=== PATIENT | male | born 1960 | race Caucasian/White ===

== ENCOUNTER → 2017-06-12 08:27 | Outpatient (CLI) | payer MEDICAID, SELFPAY ==
[2017-05-11 14:21] VITALS: BP 151/82; PULSE 75; RESP 18; TEMP 36.7; O2SAT 96; BMI 29.5
--- NOTE | 2017-05-11 14:47 | SDCEKG_ITS ---
Test Reason : Blood Pressure : / mmHG Vent. Rate : 077 BPM Atrial Rate : 077 BPM P-R Int : 152 ms QRS Dur : 094 ms QT Int : 416 ms P-R-T Axes : 042 021 126 degrees QTc Int : 470 ms Normal sinus rhythm T wave abnormality, consider lateral ischemia Prolonged QT Abnormal ECG Confirmed by CORNELIO STRONG ([id number]), editor house organ JENNIFER PEREZ ([id number]) on 05/14/2017 1:36:32 PM Referred By: Brennan Carrillo Confirmed By:CORNELIO STRONG
--- NOTE | 2017-05-11 14:50 | RAD_ITS ---
STUDY: X-RAY CHEST REASON FOR EXAM: Male, 56 years old. Preoperative evaluation. Shortness of breath. TECHNIQUE: PA and lateral views of the chest. COMPARISON: None. FINDINGS: Hyperinflation. Decreased bronchovascular markings bilaterally suggestive of emphysematous changes. Mild increased markings at the lung bases suggestive of scarring. This also evidence of a tiny cystic spaces at the lung bases suggestive of honeycombing. Sternal cerclage wires and vascular clips are present from a prior sternotomy and coronary artery bypass graft procedure (CABG). Normal mediastinum and manny. Normal visualized pulmonary arteries. There is atherosclerotic tortuosity of the aortic arch and descending thoracic aorta. Normal visualized thoracic spine. Normal visualized ribs, clavicles, and shoulders. There is no demonstrated abnormality of the visualized soft tissue structures of the upper abdomen. RAD/Chest PA and Lateral IMPRESSION: Findings suggestive of a chronic bibasilar scarring superimposed on emphysematous changes. Electronically Signed: Chad Mccracken MD at 15:20 EDT Tel [phone], Service support ,
[2017-05-11 15:10] LABS: Hematocrit 37.9 % (40-54); Hemoglobin 12.9 g/dl (13.0-16.5); Mean Corpuscular Hgb 30.6 pg (27.0-32.0); Mean Platelet Vol. 8.3 fl (6.2-12.0); Platelet Count 410 K/mm3 (150-450); RBC Distribution Width CV 13.5 % (11.6-14.6); Red Blood Count 4.21 M/mm3 (4.6-6.2); White Blood Count 9.2 K/mm3 (4.4-11.0)
[2017-05-11 15:15] LABS: Scan Indicated on CBC? Y/N NO
[2017-05-11 15:29] LABS: Anion Gap 6 (5-15); BUN 1 mg/dL (7-18); BUN/Creat Ratio 2.5 RATIO (10-20); Calcium,Total 8.8 mg/dL (8.5-10.1); Chloride 92 mmol/L (98-107); EST Glomerular Filtration Rate 237 mL/min (>60); Est Glom Filt Rate - Afr Amer 287 mL/min (>60); Glucose 87 mg/dL (74-106); Potassium 3.8 mmol/L (3.5-5.1); Sodium Level 130 mmol/L (136-145)
== END ==
PROVIDERS: Visit Provider Otolaryngology
DX: R06.02 Shortness of breath (principal); I10 Essential (primary) hypertension; F17.200 Nicotine dependence, unspecified, uncomplicated; J45.909 Unspecified asthma, uncomplicated; R94.31 Abnormal electrocardiogram [ECG] [EKG]; Z53.9 Procedure and treatment not carried out, unspecified reason
CPT/HCPCS: 71046; 80048; 85027; 93005

== ENCOUNTER → 2017-06-18 08:40 | Outpatient (CLI) | payer MEDICAID, SELFPAY ==
--- NOTE | 2017-06-18 08:42 | ECHOD_ITS ---
Reason For Study: S/P CABG Procedure This was a 2D Doppler, Color Flow transthoracic echocardiogram. The study was technically difficult. Exam performed in department. Left Ventricle Normal size and thickness. The estimated ejection fraction is 65 %. Normal diastology for age. No regional wall motion abnormalities noted. Right Ventricle Normal size and thickness. Normal systolic function. Atria Normal left atrium. Normal right atrium. Normal atrial septum. Mitral Valve The mitral valve is structurally normal. No prolapse or stenosis seen. Trivial mitral valve insufficiency. Tricuspid Valve Normal tricuspid valve. Trivial eccentric tricuspid valve insufficiency. Right ventricular systolic pressure estimated to be 27 mmHg. Aortic Valve Trisinus/trileaflet aortic valve. Mild diffuse aortic valve thickening. Trivial aortic valve insufficiency. Pulmonic Valve Normal pulmonic valve. Great Vessels Normal aortic root. Normal arch. Normal inferior vena cava. Inferior vena cava collapse with sniff. Pericardium/Pleural No pericardial effusion. Medication Definity0.3ml given slow IV push to enhance endocardial definition. MMode/2D Measurements & Calculations LVIDd: 5.0 cm IVSd: 1.4 cm Ao root diam: 3.0 cm LVIDs: 3.8 cm LVPWd: 0.85 cm LA dimension: 4.0 cm RVDd: 3.4 cm FS: 24.6 % LAV(MOD-bp): 42.7 ml LA A4 area: 16.6 cm2 RA A4 area: 13.5 cm2 LAV(MOD-bp) Indexed: 21.8 ml/m2 LAV(MOD-sp2): 41.5 ml LAV(MOD-sp4): 43.2 ml Doppler Measurements & Calculations MV E max viet: 98.7 cm/sec Lat Peak E' Viet: 8.0 cm/sec Med Peak E' Viet: 4.8 cm/sec MV A max viet: 71.7 cm/sec E/E' lat: 12.3 E/E' med: 20.7 MV E/A: 1.4 Ao V2 max: 130.3 cm/sec AI max viet: 440.0 cm/sec LV V1 max: 139.9 cm/sec Ao max P.8 mmHg AI max P.4 mmHg LV V1 max P.8 mmHg Ao V2 mean: 86.3 cm/sec AI dec slope: 305.1 cm/sec2 Ao mean P.3 mmHg AI P1/2t: 422.5 msec Ao V2 VTI: 25.8 cm PA V2 max: 111.7 cm/sec TR max viet: 236.3 cm/sec TR max P.3 mmHg Interpretation Summary The estimated ejection fraction is 65 %. Normal diastology for age. Trivial mitral valve insufficiency. Trivial eccentric tricuspid valve insufficiency. Right ventricular systolic pressure estimated to be 27 mmHg. Trivial to mild aortic valve insufficiency. There is no comparison study available. Ordering Physician: Fred Walton Referring Physician: Davi See Performed By: Sanjuanita Thacker RDCS, RVT
== END ==
PROVIDERS: Visit Provider Internal Medicine Cardiovascular Disease
DX: I25.10 Atherosclerotic heart disease of native coronary artery without angina pectoris (principal); R94.31 Abnormal electrocardiogram [ECG] [EKG]; Z95.1 Presence of aortocoronary bypass graft; Z01.810 Encounter for preprocedural cardiovascular examination
CPT/HCPCS: 93306; Q9957; A4216; C8929

== ENCOUNTER → 2017-07-10 11:47 | Outpatient (CLI) | payer MEDICAID, SELFPAY ==
--- NOTE | 2017-07-11 12:24 | STRESSREP ---
Stress Test Report Treadmill EKG: Resting EKG: Normal sinus rhythm, normal axis, normal intervals, no evidence of previous myocardial infarction. Treadmill EKG: The patient exercise according to a modified Casimiro protocol for 54 seconds, achieving a maximum workload of 1.30 METS. Resting heart rate was initially 104 beats a minute and umair to maximum 134 beats a minute which represents 83% of the maximal age corrected heart rate. Resting blood pressure was 132/94, and umair to maximum 180/88. Test was terminated due to dyspnea and fatigue. During exercise the patient's heart rate increased as expected. The patient had no dynamic EKG changes to suggest ischemia. No anginal symptoms recorded. Conclusions: Abnormal adequate treadmill EKG. Negative for ischemia by EKG criteria. No anginal symptoms noted. No arrhythmias noted. Appropriate blood pressure response to exercise. Markedly reduced exercise capacity going only 54 seconds on a modified Casimiro protocol. Test terminated due to dyspnea and fatigue. Recommend clinical correlation or alternative mode of testing if coronary ischemia is strongly suspected. No complications.
== END ==
PROVIDERS: Visit Provider Internal Medicine Cardiovascular Disease
DX: R94.31 Abnormal electrocardiogram [ECG] [EKG] (principal); Z01.810 Encounter for preprocedural cardiovascular examination; E78.5 Hyperlipidemia, unspecified; I10 Essential (primary) hypertension; I25.2 Old myocardial infarction; I25.10 Atherosclerotic heart disease of native coronary artery without angina pectoris; Z95.1 Presence of aortocoronary bypass graft
CPT/HCPCS: 93017

== ENCOUNTER → 2017-07-27 12:23 | Outpatient (CLI) | payer MEDICAID, SELFPAY ==
--- NOTE | 2017-07-27 12:24 | STE_ITS ---
Reason For Study: ABN STRESS, PRE-OP, HTN Stress Results Protocol: Dobutamine Stress Protocol Maximum Predicted HR: 161 bpm Target HR: 137 bpm% Maximum Predict ed HR: 86 % DurationHeart Rate Stage (mm:ss) (bpm) BPDose Comment BASELINE 89 148/99 DEFINITY 6 ML DILUTED USED DURING STRESS DSE- 10 MCG 3:42 10 2 150/69059.00SL SOB DSE- 20 MCG 3:17 12 6 177/8020.00 DSE- 30 MCG 5:56 13 9 153/8030.00RARE PVC, SL SOB RECOVERY 102 142/9 0 Stress Duration: 12:55 mm:ss Maximum Stress HR: 139 bpm Baseline Echocardiogram Findings The estimated ejection fraction is 65 %. Stress Echo Wall motion Data Resting WMIntermediate WMStress WM Resting Wall Motion Wall Motion Stress No regional wall motion No regional wall motion abnormalities noted. abnormalities noted. EKG Data Normal intervals are noted. The patient was titrated from 10 mcg to a maximun of 30 mcg of dobutamine during the stress. The maximum heart rate attained was 139 beats per minute. This was 86% of maximum predicted heart rate. During dobutamine infusion, there were no ST or T wave changes noted to suggest ischemia. No clinical angina was noted. Interpretation Summary The study was technically difficult. Contrast injection was performed. The estimated ejection fraction is 65 %. The patient was titrated from 10 mcg to a maximun of 30 mcg of dobutamine during the stress. Normal, adequate, dobutamine echocardiogram. Negative for ischemia by EKG and echocardiographic criteria. No anginal symptoms noted. Rare PVCs noted. Appropriate blood pressure response to dobutamine. Final LVEF is 75%. Decreased sensitivity due to poor echo windows requiring Definity enhancement agent. No complications. Ordering Physician: Fred Walton Referring Physician: Fred Walton Performed By: Caterina Montes, RDCS, RVT
== END ==
PROVIDERS: Visit Provider Internal Medicine Cardiovascular Disease
DX: Z01.810 Encounter for preprocedural cardiovascular examination (principal); I25.10 Atherosclerotic heart disease of native coronary artery without angina pectoris; I25.2 Old myocardial infarction; I10 Essential (primary) hypertension; E78.5 Hyperlipidemia, unspecified; R94.31 Abnormal electrocardiogram [ECG] [EKG]; R94.39 Abnormal result of other cardiovascular function study; Z95.1 Presence of aortocoronary bypass graft
CPT/HCPCS: 93017; 93350; J7030; Q9957; A4216; C8928

== ENCOUNTER 2017-10-15 05:53 | Day surgery (SDC) | payer MEDICAID, SELFPAY ==
[2017-10-15] VITALS (12 sets, daily range): BP systolic 107–146; BP diastolic 66–88; PULSE 60–76; RESP 18–22; TEMP 36.3–36.9; O2SAT 92–98; BMI 26.8
--- NOTE | 2017-10-15 | NASAL_PTH ---
PATIENT: JACOB MCCALLUM [place] [facility] [place][id number] AGE/SX: 57/M ROOM: RE10/15/[address]: Dr. Brennan Carrillo MD : [id number] BED: DIS: 10/15/2017 SPEC #: [id number] RECD: 10/15/17 08:10 STATUS: POORNIMA RESigifredo #: [id number] NEREIDA: 10/15/17 00:[address]: Brennan Carrillo DEPT: SURGICAL PATHOLOGY RECD BY: Rosa Shepherd ENTERED: 10/15/17 09:52 SP TYPE: NASAL SPEC OTHR DR: Dr. Davi See MD Tissues: A - Skin of nose, NOS B - Skin of nose, NOS Procedures: Frozen Section (charge) Frozen Section Add'l ([facility]) Surgery Specimen Level IV Frozen (no charge) HEADER OPERATION: Excision lesion nose with frozen section, cervical advancement PRE-OP DIAGNOSIS: Malignant neoplasm of skin of nose TISSUE SUBMITTED: A ? Left nasal ala neoplasm, long stitch ? lateral at 3 o?clock, short stitch ? superior at 12 o?clock, frozen section, B ? Additional tissue, left nasal ala FROZEN SECTION DIAGNOSIS A. Left nasal alar neoplasm, excision: Basal cell carcinoma, completely excised. SJ:mariaelena 10/15/17 MICROSCOPIC DIAGNOSIS A. Left nasal ala neoplasm, excision: Basal cell carcinoma, nodular type with focal ulceration and associated inflammation, completely excised. B. Additional tissue, left nasal ala, biopsy: Actinic keratosis with moderate atypia. Solar elastosis. SJ:mariaelena 10/16/17 MICROSCOPIC DESCRIPTION Slides are reviewed. GROSS DESCRIPTION A - Received fresh for frozen section diagnosis labeled with the patient's name is a specimen designated left nasal ala neoplasm. The specimen consists of a round piece of cruz-white skin measuring 1.7 x 1.5 cm and up to 0.4 cm in thickness. The specimen is oriented as follows: long stitch ? lateral at 3 o?clock and short stitch ? superior at 12 o?clock. The specimen is inked as follows: 12-3 o?clock ? black, 3-6 o?clock ? blue, 6-9 o?clock ? green, 9-12 o?clock ? yellow. The entire specimen is submitted for frozen section diagnosis in two cassettes as follows: 1 ? frozen section, 12-3 and 6-9 o?clock margin, enface, 2 ? rest of the specimen. B - Received in fixative is one container labeled with the patient's name and designated additional tissue, left nasal ala medial. The specimen consists of a piece of cruz-white skin measuring 0.7 x 0.2 x 0.1 cm. The specimen is totally submitted in one cassette. / SJ:rg 10/15/17 TC:0 CPT: 38207 x2, 05675, 79423
[2017-10-15 06:52] LABS: Hemoglobin 12.5 g/dl (13.0-16.5); Mean Corp Hgb Conc 33.8 g/gl (32-36); Mean Corpuscular Hgb 29.8 pg (27.0-32.0); Mean Corpuscular Volume 88.1 fL (80-94); Mean Platelet Vol. 8.1 fl (6.2-12.0); Platelet Count 383 K/mm3 (150-450); RBC Distribution Width CV 14.9 % (11.6-14.6); RBC Distribution Width SD 47.6 fl (35.1-43.9); White Blood Count 7.9 K/mm3 (4.4-11.0)
[2017-10-15 06:59] LABS: Scan Indicated on CBC? Y/N NO
[2017-10-15 07:02] LABS: Anion Gap 4 (5-15); BUN 2 mg/dL (7-18); BUN/Creat Ratio 3.5 RATIO (10-20); Calcium,Total 8.8 mg/dL (8.5-10.1); Chloride 97 mmol/L (98-107); Creatinine, Serum 0.58 mg/dL (0.70-1.30); EST Glomerular Filtration Rate 153 mL/min (>60); Est Glom Filt Rate - Afr Amer 185 mL/min (>60); Estimated Creatinine Clearance 128.21 ml/min; Glucose 91 mg/dL (74-106); Potassium 4.2 mmol/L (3.5-5.1); Sodium Level 132 mmol/L (136-145)
[2017-10-15] MEDS: Ipratropium/Albuterol Sulfate 3 ML AMPUL.NEB INHALATION (07:09)
[2017-10-15] MEDS: Bacitracin 500 UNITS/GM PACKET (08:50)
--- NOTE | 2017-10-15 08:58 | PCM.DC ---
You will use the following diet at home:: No restrictions, Regular Discharge Activity: Return to Normal Activity Additional Activity Instructions:: Remove dressing 10/16/17. Apply antibiotic ointment 3x / day on the sutures. May shower on Sunday morning and get the sutures wet. Allergies/Adverse Reactions: Allergies Cephalosporins Allergy (Verified 10/05/17 13:41) Unknown Penicillins Allergy (Verified 10/05/17 13:41) Unknown Phenothiazines Allergy (Verified 10/05/17 13:41) Unknown Medications to take at Discharge Acetaminophen [Tylenol] 325 mg PO Q4H PRN 05/11/17 Albuterol Aerosols [Ventolin Aerosols] 2.5 mg INHALATION TID PRN PRN 05/11/17 Aspirin E.C. [Ecotrin] 325 mg PO DAILY@0800 05/11/17 Atorvastatin Calcium [Lipitor] 10 mg PO QHS 05/11/17 Divalproex Sodium [Divalproex Sodium ER] 1,000 mg PO QHS 05/11/17 Guaifenesin [Mucinex] 1,200 mg PO BID PRN 05/11/17 Hydrochlorothiazide [Hctz] 25 mg PO DAILY 05/11/17 Isosorbide Mononitrate [Isosorbide Mononitrate ER] 30 mg PO BID 05/11/17 Metoprolol Tartrate [Lopressor (Beta Kerwin)] 50 mg PO BID 05/11/17 Montelukast [Singulair] 10 mg PO QHS 05/11/17 Omeprazole [Prilosec] 20 mg PO DAILY 05/11/17 Paliperidone [Invega] 9 mg PO DAILY 05/11/17 Potassium Chloride [K-Dur] 20 meq PO DAILY 05/11/17 Sertraline HCl [Zoloft] 100 mg PO QHS 05/11/17 Tiotropium [place] [Spiriva Respimat] 2 puff IH DAILY 05/11/17 Albuterol Inhaler [Ventolin Hfa (SP)] 2 puff INHALATION Q6H PRN PRN 10/05/17 Claritin 10 mg PO DAILY 10/05/17 Mometasone/Formoterol [Dulera 200 Mcg/5 Mcg Inhaler] 2 puff IH BID 10/05/17 Quetiapine Fumarate [Seroquel] 100 mg PO QHS 10/05/17 Primary Care Physician: Davi See MD [Primary Care Provider] - Test Results: Test results from this visit will be discussed in further detail at your follow-up appointment, if applicable.
--- NOTE | 2017-10-15 10:26 | PCM.OPRPT ---
Report of Operation Date of Procedure: 10/15/17 Pre-Operative Diagnosis: aphonia, tracheoesophageal fistula Post-Operative Diagnosis: same Surgery/Procedure Performed:: revision tracheoesphogeal fistula. rigid esophagoscopy Type of Anesthesia:: General Anesthesiologist: Scott Huffman Specimen's removed: tracheal tissue Estimated Blood Loss (mL): mimimal Description of Procedure: The patient was taken to the OR on 10/15/17. He was placed in the supine position on the OR table. He was given sufficient general anesthesia. The patient was intubated through the laryngeal stoma with a 6.5 laser tube. The neck was prepped and draped steriley. The old prosthesis was removed with a hemostat. I then re intubated him with a 4.5 tube to allow more room to work. Next, the granulation tissue was excised from the back wall of the trachea with a 15 blade and metzenbaum scissors. A 16 citizen of [place] red rubber catheter was inserted into posterior wall of the trachea and into the esophagus. The entirety of the granulation was then removed. I obtained hemostasis with silver nitrate and topical adrenaline on Codman's. The smaller tube was removed and the 6.5 tube was re inserted. A gum guard was placed on the upper gingiva. Next, a rigid esophagoscope was placed through the mouth and oropharynx into the neopharynx. The anterior wall was found to be normal. The red rubber was seen heading inferiorly toward the stomach. The scope was then removed. I then sewed the red rubber catheter to the skin with 3-0 silk. Tape was also used to secure the tube to the skin. The procedure was terminated. He was awoken and brought to the recovery room in stable condition. Blood loss minimal, replacement none. Sponge, needle and instrument count were correct at the end of the procedure.
--- NOTE | 2017-10-15 10:47 | SUR.PHASEI ---
IN PACU: DIFFICULTY WEANING OFF O2, CURRENTLY AT 1 L/MIN VIA SIMPLE MASK. WHEN PLACED ON ROOM AIR, DESATS TO 85% WITH SLOW RECOVERY. NO LONGER HAVING AUDIBLE I/E/ WHEEZING ON ARRIVAL TO PACU. RR 18-22, UNLABORED. STOOD AT BEDSIDE AND MARCHED IN PLACED, RETURNED TO BED. DENIES PAIN, DIFFICULTY BREATHING, OR FEELING SHORT OF BREATH. DR GARIBAY AWARE, CONTINUE TO MONITOR AND ATTEMPT WEANING PER PROTOCOL.
--- NOTE | 2017-10-15 12:04 | PCM.OPRPT ---
Report of Operation Date of Procedure: 10/15/17 Pre-Operative Diagnosis: basal cell carcinoma nose Post-Operative Diagnosis: same Surgery/Procedure Performed:: Excision basal cell carcinoma nose (1.5 x 1.6 cm). Cheek advancement flap reconstruction. Description of Surgical Findings:: Negative margins by frozen section. Type of Anesthesia:: General Anesthesiologist: Scott Huffman Specimen's removed: as above Estimated Blood Loss (mL): minimal Description of Procedure: The patient was taken to the operating room on 10/15/17. He was placed in the supine position on the OR table and given sufficient general anesthesia. The table was turned 90 degrees clockwise. The left face, neck and ear were prepped and draped steriley. I injected 1% lidocaine with epinephrine ([id number]) into the skin surrounding the lesion and up onto the lateral side wall and cheek. I then excised the lesion in a [place] with 5-6 mm margins using a 15 blade. The excised area extended from the nasal ala onto the cheek. The specimen was marked with sutures laterally and superiorly. The specimen was sent for frozen section. Hemostasis was achieved with bipolar cautery. Eventually we heard the we had clear margins. Next, I undermined the skin of the nose on the lower lateral cartilage which was still intact. I then made incisions onto the nasal side wall and in the nasolabial crease. I then undermined the skin of the cheek and lateral side wall. I advanced the skin of the nose and tacked this to the periosteum of the maxilla with 4-0 vicryl. I then advanced the cheek flap and tacked this to the periosteum to re create the naso facial sulcus. Excess skin was excised with a 15 blade from the cheek flap. I then closed the defect with 4-0 subcutaneous and 6-0 nylon for the skin. Bacitracin and a pressure dressing were applied. The patient was then awoken and brought to the recovery room in stable condition. Blood loss minimal, replacement none. Sponge, needle and instrument count were correct at the end of the procedure.
== END 2017-10-15 11:37 | disposition home or self-care (01) ==
LOC: SDC 05:53 → AC 05:55
PROVIDERS: Visit Provider Otolaryngology
PROC: (CPT 14060; principal; 2017-10-15 07:20)
DX: J86.0 Pyothorax with fistula (principal); C44.311 Basal cell carcinoma of skin of nose; R49.1 Aphonia; L57.0 Actinic keratosis; L57.8 Other skin changes due to chronic exposure to nonionizing radiation; W89.9XXA Exposure to unspecified man-made visible and ultraviolet light, initial encounter; Y92.9 Unspecified place or not applicable; Y99.9 Unspecified external cause status
CPT/HCPCS: 14060; 31613; 43191; 36415; 80048; 85027; 88305; 88331; 88332; 94640; J7120; J2405

== ENCOUNTER 2018-09-16 20:56 | Emergency (ER) | payer MEDICAID, SELFPAY ==
[2018-09-16 09:17] VITALS: BMI 24.0
[2018-09-16 20:57] VITALS: BP 157/104; PULSE 103; RESP 28; TEMP 37; O2SAT 88; BMI 25.2
[2018-09-16 21:02] VITALS: BP 132/86; PULSE 98; O2SAT 92
[2018-09-16 21:04] VITALS: O2SAT 93
--- NOTE | 2018-09-16 21:15 | EKG12_ITS ---
Test Reason : SOB Blood Pressure : / mmHG Vent. Rate : 095 BPM Atrial Rate : 095 BPM P-R Int : 136 ms QRS Dur : 096 ms QT Int : 360 ms P-R-T Axes : 073 027 084 degrees QTc Int : 452 ms Normal sinus rhythm Nonspecific T wave abnormality Abnormal ECG Confirmed by KRYSTINA FREDERICK, CHAKA ([id number]), content editor ZOILA PARIKH ([id number]) on 09/18/2018 1:42:08 PM Referred By: TESSY Confirmed By:CHAKA FLAHERTY MD
--- NOTE | 2018-09-16 21:15 | RAD_ITS ---
STUDY: X-RAY CHEST REASON FOR EXAM: Male, 58 years old. Shortness of breath with cough TECHNIQUE: Single AP portable view of the chest. COMPARISON: May 11, 2017 FINDINGS: As compared with the exam from last year, there is increased interstitial prominence. Unsure if this represents mild vascular congestion versus chronic process. No focal consolidation or effusion. Stable calcified right midlung granuloma. Sternal cerclage wires and vascular clips are present from a prior sternotomy and coronary artery bypass graft procedure (CABG). Normal mediastinum and manny. Normal visualized pulmonary arteries. Normal visualized aortic arch and descending thoracic aorta. Normal visualized thoracic spine. Normal visualized ribs, clavicles, and shoulders. There is no demonstrated abnormality of the visualized soft tissue structures of the upper abdomen. RAD/Chest 1 View (Portable) IMPRESSION: Increased interstitial prominence as compared to the exam from last year. Electronically Signed: Yuniel Mckeon DO at 22:04 EDT Tel , Service support ,
[2018-09-16 21:20] VITALS: PULSE 98; RESP 22; O2SAT 92
[2018-09-16] MEDS: Ipratropium/Albuterol Sulfate 3 ML AMPUL.NEB INHALATION (21:20)
[2018-09-16] MEDS: MethylPREDNISolone 125 MG/2 ML Vial IV (21:44)
[2018-09-16 21:48] LABS: Absolute Lymphocyte Count 1.72 X10^3/uL (0.83-4.51); Absolute Neutrophil Count 7.4 X10^3/uL (2.0-7.7); Basophil# 0.04 X10^3/uL; Basophil% 0.4 % (0-1); Eosinophil# 0.09 X10^3/uL; Eosinophils% 0.9 % (0-5); Hematocrit 37.8 % (40-54); Hemoglobin 12.2 g/dL (13.0-16.5); Lymphocyte # 1.72 X10^3/ul (4.0); Lymphocyte % 16.7 % (19-41); Mean Corp Hgb Conc 32.3 g/dL (32-36); Mean Corpuscular Volume 93.1 fL (80-94); Mean Platelet Vol. 9.1 fl (6.2-12.0); Monocyte# 1.02 X10^3/uL; Monocyte% 9.9 % (0-10); NRBC Flagged by Analyzer 0 % (0-5); Neutrophil # 7.37 X10^3/uL (2.7-7.7); Neutrophil % 71.7 % (47-70); Platelet Count 382 K/mm3 (150-450); RBC Distribution Width CV 15.4 % (11.6-14.6); RBC Distribution Width SD 51.9 fl (35.1-43.9); Red Blood Count 4.06 M/mm3 (4.6-6.2); White Blood Count 10.3 K/mm3 (4.4-11.0)
[2018-09-16 22:34] LABS: Anion Gap 7 (5-15); BUN 13 mg/dL (7-18); BUN/Creat Ratio 25.8 RATIO (10-20); Calcium,Total 9.1 mg/dL (8.5-10.1); Chloride 99 mmol/L (98-107); EST Glomerular Filtration Rate 179 mL/min (>60); Est Glom Filt Rate - Afr Amer 216 mL/min (>60); Estimated Creatinine Clearance 146.89 ml/min; Glucose 126 mg/dL (74-106); Potassium 3.8 mmol/L (3.5-5.1); Sodium Level 139 mmol/L (136-145)
--- NOTE | 2018-09-16 23:34 | ED.DCSUM_ITS ---
- ER Visit Summary Date of Service: 09/16/18 Chief Complaint: Coughing History of Present Illness: The patient is a 58 M who presents from his rest home for coughing, sputum, and wheezing. Patient has a history of COPD as well as coronary disease. He has an order for DNR comfort care only. Physical Examination: Afebrile and vital signs unremarkable. 92% on nasal cannula. Patient is alert and in no acute distress. Sitting comfortably. Oriented to person. Lungs show wheezing bilaterally. Heart regular. Abdomen soft and nontender. Extremities nontender. Skin appears unremarkable. Test Results: EKG showed sinus rhythm at a rate of 95. Nonspecific T wave changes. Chest x-ray showed increasing interstitial prominence but was otherwise unremarkable. Hemoglobin 12.2, glucose 126, CO2 33, troponin normal. Emergency Department Course and Treatment: Patient was placed on a monitor. I ordered DuoNeb and Solu-Medrol. He was placed on a nasal cannula for comfort. Patient had a signed DNR Comfort Care order, and so our focus was in accordance with this. His work-up was all fairly unremarkable. He is not septic or in any apparent distress. I believe he has a COPD exacerbation. On reevaluation, he is stable. I spoke with his doctor, Dr. See. It sounds like he is at his baseline mental status. His doctor said that they are able to dispense medication at his rest home. We will focus on comfort for him and avoid any further diagnostic testing or hospitalization. Treatment Plan: As above Disposition: Discharge Impression: 1. COPD exacerbation 2. DNR Comfort Care only This note was generated with [employer]it[employer] dictation software. It may contain incorrect words, spelling, and punctuation that were not noted in review of the chart prior to signing ED Disposition - Plan for ED Patient: Referrals: Davi See MD [Primary Care Provider] -
--- NOTE | 2018-09-16 23:38 | ED.DEP ---
ED Disposition - Plan for ED Patient: Instructions: Copd Flare Prescriptions: Doxycycline 100 mg PO BID #20 cap Prescription Printed Prednisone 10 mg PO UD #33 tab Prescription Printed Albuterol Aerosols [Ventolin Aerosols] 2.5 mg INHALATION Q4H PRN #25 vial Prescription Printed Referrals: Davi See MD [Primary Care Provider] -
[2018-09-16] MEDS: Doxycycline 100 MG CAPSULE PO (23:43)
[2018-09-16 23:44] VITALS: BP 133/81; PULSE 89; RESP 18; O2SAT 92
--- NOTE | 2018-09-16 23:49 | ED.RN ---
2 ATTEMPTS TO CALL REPORT.
--- NOTE | 2018-09-17 00:20 | ED.RN ---
3RD ATTEMPT TO CALL REPORT. [phone]
== END 2018-09-17 00:21 | disposition home or self-care (01) ==
LOC: ED 22:04
PROVIDERS: Emergency Provider Emergency Medicine
DX: J44.1 Chronic obstructive pulmonary disease with (acute) exacerbation (principal); Z66 Do not resuscitate; I25.10 Atherosclerotic heart disease of native coronary artery without angina pectoris; I25.2 Old myocardial infarction; I10 Essential (primary) hypertension; F31.9 Bipolar disorder, unspecified; Z87.891 Personal history of nicotine dependence
CPT/HCPCS: 71045; 80048; 84484; 85025; 93005; 94640; 96374; 99285; A4216

== ENCOUNTER → 2018-09-20 14:56 | Outpatient (CLI) | payer MEDICAID, SELFPAY ==
[2018-09-05 11:48] VITALS: BMI 24.2
[2018-09-16 20:57] VITALS: BMI 25.2
--- NOTE | 2018-09-20 15:03 | ECHOD_ITS ---
Reason For Study: s/p CABG Procedure This was a 2D Doppler, Color Flow transthoracic echocardiogram. The study was technically difficult. Exam performed in department. Left Ventricle Normal size and thickness. The estimated ejection fraction is 65 %. Stage 1 diastolic dysfunction. No regional wall motion abnormalities noted. Right Ventricle Normal size and thickness. Normal systolic function. Atria Normal left atrium. Normal right atrium. Normal atrial septum. Mitral Valve The mitral valve is structurally normal. No prolapse or stenosis seen. Trivial mitral valve insufficiency. Tricuspid Valve Normal tricuspid valve. Trivial tricuspid valve insufficiency. Right ventricular systolic pressure estimated to be 25 mmHg. Aortic Valve Trisinus/trileaflet aortic valve. Mild diffuse aortic valve thickening. Trivial aortic valve insufficiency. Pulmonic Valve Normal pulmonic valve. Great Vessels Normal aortic root. Normal arch. Normal inferior vena cava. Inferior vena cava collapse with sniff. Pericardium/Pleural No pericardial effusion. MMode/2D Measurements & Calculations LVIDd: 5.0 cm IVSd: 1.3 cm Ao root diam: 3.0 cm LVIDs: 3.5 cm LVPWd: 1.00 cm RVDd: 3.8 cm FS: 30.7 % LAV(MOD-bp): 47.1 ml LA A4 area: 15.3 cm2 LA dimension(2D): 3.9 cm LAV(MOD-bp) Indexed: 25.9 ml/m2 LAV(MOD-sp2): 47.6 ml LAV(MOD-sp4): 41.6 ml RA A4 area: 12.2 cm2 Doppler Measurements & Calculations MV E max viet: 57.8 cm/sec Lat Peak E' Viet: 10.0 cm/sec Med Peak E' Viet: 6.4 cm/sec MV A max viet: 70.2 cm/sec E/E' lat: 5.8 E/E' med: 9.0 MV E/A: 0.82 Ao V2 max: 135.1 cm/sec AI max viet: 421.6 cm/sec LV V1 max: 102.7 cm/sec Ao max P.3 mmHg AI max P.2 mmHg LV V1 max P.2 mmHg Ao V2 mean: 87.5 cm/sec AI dec slope: 220.7 cm/sec2 Ao mean P.5 mmHg AI P1/2t: 559.5 msec Ao V2 VTI: 24.9 cm PA V2 max: 104.9 cm/sec TR max viet: 238.2 cm/sec TR max P.7 mmHg Interpretation Summary The estimated ejection fraction is 65 %. Stage 1 diastolic dysfunction. Trivial mitral valve insufficiency. Trivial tricuspid valve insufficiency. Right ventricular systolic pressure estimated to be 25 mmHg. Trivial aortic valve insufficiency. Compared to echo report dated 06/18/17, no appreciable changes noted. Ordering Physician: Fred Walton Referring Physician: Davi See Performed By: Sanjuanita Thacker, RAFAL, RVT
== END ==
PROVIDERS: Referring Provider Internal Medicine Cardiovascular Disease; Visit Provider Internal Medicine Cardiovascular Disease
DX: R94.31 Abnormal electrocardiogram [ECG] [EKG] (principal); I25.10 Atherosclerotic heart disease of native coronary artery without angina pectoris; I25.2 Old myocardial infarction; I10 Essential (primary) hypertension; Z95.1 Presence of aortocoronary bypass graft
CPT/HCPCS: 93306

== ENCOUNTER → 2018-10-18 08:47 | Outpatient (CLI) | payer MEDICAID, SELFPAY ==
[2018-10-18 09:23] VITALS: PULSE 79; PULSE 80; PULSE 86; PULSE 90; O2SAT 95; O2SAT 96
--- NOTE | 2018-10-18 09:29 | CPS ---
Patient came in on 3 lpm O2, SpO2 96%. Took patient off oxygen, SpO2 88% on room air after about 5 minutes. Placed patient back on 3 lpm O2 to start testing. Patient came to testing in a wheelchair and states that he does not walk very much at all. Patient also came in only in socks with no shoes for testing. This RT and Fariha 3RD GRADE TEACHER placed patient in gripped socks for better stability and helped the patient with a 2 assist for walking and patient pushed wheelchair for added stability as well. At the second minute patient's gait was unstable and patient stated that this is more that he usually walks. This RT decided to terminate the rest of testing due to fall risk of patient.
--- NOTE | 2018-10-18 13:10 | WT_ITS ---
PSN 6 Minute Walk Test - 6 Minute Walk Test 6 Minute Walk Test: 6 Minute Walk Test PSN:6-Minute Walk Test Start: 10/18/18 09:23 Freq: Status: Active Protocol: [id number] Document 10/18/18 09:23 ROSA (Rec: 10/18/18 09:36 ROSA [id number]) 6 Minute Walk Test Date Performed 10/18/18 Time Performed 09:00 Height 5 ft 7 in Weight: 70.307 kg Weight in Pounds 155.[address]: Casimiro Méndez Assistive device used: Walker Pre-test Oxygen Flow Rate (L/min) (L/min) 3 Oxygen Delivery Method Nasal Cannula Pulse Ox (%) 96 Pulse Rate (60-100 beats/min) 80 Dyspnea Juancho Scale (0-10) 1 Exertion Juancho Scale (6-20) 6 1st minute Oxygen Flow Rate (L/min) (L/min) 3 Oxygen Delivery Method Nasal Cannula Pulse Ox (%) 96 Pulse Rate (60-100 beats/min) 86 2nd minute Oxygen Flow Rate (L/min) (L/min) 3 Oxygen Delivery Method Nasal Cannula Pulse Ox (%) 95 Pulse Rate (60-100 beats/min) 90 Post-test Oxygen Flow Rate (L/min) (L/min) 3 Oxygen Delivery Method Nasal Cannula Pulse Ox (%) 95 Pulse Rate (60-100 beats/min) 79 Dyspnea Juancho Scale (0-10) 1 Full Laps Walked 2 Partial Lap, Number of Tiles Walked 0 Total Distance Walked (ft) 118 10/18/18 09:29 Cardiopulmonary Services by Dana Malone Patient came in on 3 lpm O2, SpO2 96%. Took patient off oxygen, SpO2 88% on room air after about 5 minutes. Placed patient back on 3 lpm O2 to start testing. Patient came to testing in a wheelchair and states that he does not walk very much at all. Patient also came in only in socks with no shoes for testing. This RT and [employer] placed patient in gripped socks for better stability and helped the patient with a 2 assist for walking and patient pushed wheelchair for added stability as well. At the second minute patient's gait was unstable and patient stated that this is more that he usually walks. This RT decided to terminate the rest of testing due to fall risk of patient. Initialized on 10/18/18 09:29 - END OF NOTE - Interpretation Interpretation: The patient was noted to be 88% on room air. The patient was then placed on 3 L nasal cannula and saturations improved to 96%. The patient ambulated for only 3 minutes with the assistance of a walker, but testing was terminated by respiratory therapist secondary to concerns for gait instability. In total, patient traveled only 118 feet, but stated this was farther than he would normally walk. These findings are consistent with a respiratory limitation exercise tolerance. - Recommendations Recommendations: 3 L nasal cannula oxygen is required at all times
== END ==
PROVIDERS: Referring Provider Internal Medicine Critical Care Medicine; Visit Provider Internal Medicine Critical Care Medicine
DX: J44.9 Chronic obstructive pulmonary disease, unspecified (principal)
CPT/HCPCS: 94618

== ENCOUNTER → 2018-12-17 07:53 | Outpatient (CLI) | payer MEDICAID, SELFPAY ==
[2018-09-05 11:48] VITALS: BMI 24.2
--- NOTE | 2018-12-17 08:43 | STEWCON_ITS ---
Reason For Study: S/P CABG Stress Results Protocol: Dobutamine Stress Echo Maximum Predicted HR: 160 bpm Target HR: 136 bpm % Maximum Predicted HR: 86 % DurationHeart Rate Stage (mm:ss) (bpm) BP Comment Baseline 67 138/89No Chest Pain; 8 ML Diluted Definity Given DSE 10 MCG 3:31 57 140/78No Chest Pain DSE 20 MCG 3:00 69 150/70No Chest Pain DSE 30 MCG 3:25 121 154/87No Chest Pain; Atropine 0.25 MG IVP DSE 40 MCG 2:06 137 180/99No Chest Pain; Atropine 0.25 MG IVP Recovery 97 142/92No Chest Pain Stress Duration: 12:02 mm:ss Maximum Stress HR: 137 bpm METS: 1 Baseline Echocardiogram Findings The estimated ejection fraction is 65 %. Stress Echo Wall motion Data Resting WM Intermediate WM Stress WM Resting Wall Motion Wall Motion Stress No regional wall motion No regional wall motion abnormalities noted. abnormalities noted. EKG Data Normal intervals are noted. The patient was titrated from 10 mcg to a maximum of 40 mcg of dobutamine during the stress. The maximum heart rate attained was 137 beats per minute. This was 85% of maximum predicted heart rate. During dobutamine infusion, there were no ST or T wave changes noted to suggest ischemia. No clinical angina was noted. Interpretation Summary The estimated ejection fraction is 65 %. Normal, adequate, dobutamine echocardiogram. Negative for ischemia by EKG and echocardiographic criteria. No anginal symptoms noted. Rare PVC and ventricular couplet noted which is a nonspecific finding given dobutamine. Hypertensive blood pressure response to dobutamine. Final LVEF of 75%. Decreased sensitivity due to poor echo windows requiring Definity agent. Test terminated due to the attainment of target heart rate. No complications. The study was technically difficult. Contrast injection was performed. Ordering Physician: Fred Walton Referring Physician: Davi See Performed By: Caterina Montes RDCS, RVT
--- NOTE | 2018-12-18 09:55 | PFT ---
INTRODUCTION: The patient is a 58-year-old male that presents for pulmonary function studies secondary to a diagnosis of COPD. Respiratory therapy reports good patient effort. Bronchodilators were used during testing. INTERPRETATION: Forced expiration spirometry demonstrates the presence of a very severe large airways obstructive ventilatory defect, with an FEV1 of 21% of predicted. There was a significant response to aerosolized bronchodilators. Spirograms are of poor quality and do not plateau indicating slow emptying of the lungs. Body plethysmography was performed and reveals an elevated RV to 205% of predicted, indicative of underlying air trapping. Diffusing capacity by single breath CO is significantly reduced at 23% of predicted. IMPRESSION: Partially reversible very severe large airways obstructive ventilatory defect with associated air trapping and symmetric reduction in diffusing capacity.
== END ==
PROVIDERS: Referring Provider Internal Medicine Critical Care Medicine; Visit Provider Internal Medicine Critical Care Medicine
DX: J44.9 Chronic obstructive pulmonary disease, unspecified (principal); I25.10 Atherosclerotic heart disease of native coronary artery without angina pectoris; E78.5 Hyperlipidemia, unspecified; I10 Essential (primary) hypertension; R94.31 Abnormal electrocardiogram [ECG] [EKG]; Z95.1 Presence of aortocoronary bypass graft
CPT/HCPCS: 93017; 93350; 94060; 94726; 94729; J7040; Q9957; A4216; C8928